=== PATIENT | female | born 1990 | race Caucasian/White ===

== ENCOUNTER 2022-07-28 20:09 | Emergency (ER) | payer MEDICAID ==
[~2022-07-28] VITALS: Ht 152.4 cm; Wt 81.6 kg
[2022-07-28] MEDS ORDERED: LORAZEPAM 0.5MG TABLET PO ONE (22:30)
[2022-07-28] MEDS ORDERED: KETOROLAC 60MG/2ML VIAL IM ONE (22:30)
[2022-07-29] MEDS ORDERED: CYCL10TA21 MT (00:48)
[2022-07-29] MEDS ORDERED: IBUP-2029 MT (00:48)
[2022-07-29 00:53] VITALS: BP 124/65
== END 2022-07-29 00:54 | disposition home or self-care (01) ==
LOC: ER 20:09
DX: M54.2 Cervicalgia (principal)
CPT/HCPCS: 73030; 81025; 96372; 99283; J1885

== ENCOUNTER 2023-03-31 11:13 | Emergency (ER) | payer MEDICAID ==
[~2023-03-31] VITALS: Ht 149.9 cm; Wt 67.0 kg
[~2023-03-31 11:13] MED LIST: CYCL10TA21 MT; IBUP-2029 MT
[2023-03-31 12:40] LABS: CLARITY URINE CLEAR (CLEAR); COLOR URINE YELLOW (YELLOW); KETONES URINE NEGATIVE (NEGATIVE); LEUKOCYTE ESTERASE URINE TRACE (NEGATIVE); NITRITE URINE NEGATIVE (NEGATIVE); OCCULT BLOOD URINE 3+ (NEGATIVE); PH URINE 6.5 (4.5-8.0); PROTEIN URINE TRACE (NEGATIVE); SPECIFIC GRAVITY URINE 1.023 (1.005-1.030); UROBILINOGEN URINE 0.2 E.U./dL (0.2-1.0)
[2023-03-31] MEDS ORDERED: ONDANSETRON HCL 4MG/2ML INJ IV STA (12:51)
[2023-03-31] MEDS ORDERED: MAGNESIUM/ALUMINUM HYDROXIDE/SIMETHICONE 30ML UDC PO STA (12:51)
[2023-03-31] MEDS ORDERED: VISCOUS LIDOCAINE 2% 15 ML UDC PO STA (12:51)
[2023-03-31] MEDS ORDERED: DICYCLOMINE 10 MG/5 ML ORAL SYR PO STA (12:51)
[2023-03-31 14:20] LABS: BASOPHILS % 0.9 % (0.0-2.0); EOSINOPHILS % 0.5 % (0.0-5.0); HEMATOCRIT. 39.2 % (36.0-48.0); HEMOGLOBIN. 13.4 g/dL (12.0-16.0); LYMPHOCYTES % 21.9 % (20.0-50.0); MEAN CORPUSCULAR HEMOGLOBIN 28.6 pg (28.0-32.0); MEAN CORPUSCULAR VOLUME 83.6 fL (81.0-99.0); MEAN PLATELET VOLUME 9.6 fl (7.4-10.4); MONOCYTES % 4.3 % (2.0-8.0); NEUTROPHILS % 72.4 % (40.0-76.0); PLATELET 267 x1000/uL (130-400); RED BLOOD CELL COUNT 4.68 mill/uL (4.2-5.4); RED CELL DISTRIBUTION WIDTH 12.9 % (11.6-14.6)
[2023-03-31 14:28] LABS: CHLORIDE 107 mEq/L (98-107); HCG SCREEN NEGATIVE
[2023-03-31] MEDS ORDERED: NITR-87 MT ×2 (17:22→17:58)
[2023-03-31] MEDS ORDERED: OMEP20CA14 MT ×2 (17:22→17:58)
[2023-03-31 18:12] VITALS: BP 118/77
== END 2023-03-31 18:19 | disposition home or self-care (01) ==
LOC: ER 11:43
DX: K80.50 Calculus of bile duct without cholangitis or cholecystitis without obstruction (principal); N39.0 Urinary tract infection, site not specified; E86.0 Dehydration; F17.200 Nicotine dependence, unspecified, uncomplicated; Z79.899 Other long term (current) drug therapy
CPT/HCPCS: 36415; 74176; 76705; 80053; 81003; 81025; 83690; 84703; 85025; 93005; 96374; 99285; J2405